=== PATIENT | female | born 1995 | race Asian ===

== ENCOUNTER 2021-02-01 16:43 | Emergency (ER) | payer OTHER ==
[~2021-02-01] VITALS: Ht 160 cm; Wt 55.0 kg
[2021-02-01] MEDS ORDERED: PNV1TABL76 PO (16:56)
[2021-02-01 17:38] LABS: BASOPHILS % 0.4 % (0.0-2.0); EOSINOPHILS % 2.5 % (0.0-5.0); HEMATOCRIT. 37.7 % (36.0-48.0); HEMOGLOBIN. 12.6 g/dL (12.0-16.0); LYMPHOCYTES % 17.2 % (20.0-50.0); MEAN CORPUSCULAR HEMOGLOBIN 30.6 pg (28.0-32.0); MEAN CORPUSCULAR VOLUME 91.2 fL (81.0-99.0); MONOCYTES % 8.3 % (2.0-8.0); NEUTROPHILS % 71.6 % (40.0-76.0); PLATELET 235 x1000/uL (130-400); RED BLOOD CELL COUNT 4.13 mill/uL (4.2-5.4); RED CELL DISTRIBUTION WIDTH 13.2 % (11.6-14.6)
[2021-02-01 17:48] LABS: CHLORIDE 106 mEq/L (98-107)
[2021-02-01 17:52] LABS: HCG SCREEN POSITIVE
[2021-02-01 18:31] LABS: B-HCG QUANTITATIVE 80103 mIU/mL (<3)
[2021-02-01 20:00] VITALS: BP 93/43
[2021-02-01 21:08] LABS: CLARITY URINE CLOUDY (CLEAR); COLOR URINE YELLOW (YELLOW); KETONES URINE TRACE (NEGATIVE); LEUKOCYTE ESTERASE URINE 2+ (NEGATIVE); NITRITE URINE POSITIVE (NEGATIVE); OCCULT BLOOD URINE 1+ (NEGATIVE); PROTEIN URINE NEGATIVE (NEGATIVE); SPECIFIC GRAVITY URINE 1.025 (1.005-1.030); UROBILINOGEN URINE 0.2 E.U./dL (0.2-1.0)
[2021-02-01] MEDS ORDERED: AMOX-424 MT (21:33)
[2021-02-01] MEDS ORDERED: AMOXICILLIN/POTASSIUM CLAVULANATE 875/125MG TAB PO ONE (21:45)
== END 2021-02-01 22:10 | disposition home or self-care (01) ==
LOC: ER 16:43
DX: O23.11 Infections of bladder in pregnancy, first trimester (principal); Z3A.08 8 weeks gestation of pregnancy
CPT/HCPCS: 36415; 76801; 80053; 81003; 81025; 84702; 84703; 85025; 86850; 86900; 87077; 87186; 93005; 99284

== ENCOUNTER 2021-05-05 15:16 | Emergency (ER) | payer OTHER ==
[~2021-05-05] VITALS: Ht 160 cm; Wt 60.0 kg
[~2021-05-05 15:16] MED LIST: AMOX-424 MT; PNV1TABL76 PO
[2021-05-05 15:36] VITALS: BP 98/56
[2021-05-05] MEDS ORDERED: SODIUM CHLORIDE 0.9% 1,000 ML IV ONE (16:45)
== END 2021-05-05 16:49 | disposition left against medical advice (07) ==
LOC: ER 15:16
DX: R55 Syncope and collapse (principal)
CPT/HCPCS: 93005; 99283; J7030

== ENCOUNTER 2024-08-22 21:07 | Emergency (ER) | payer MEDICAID, OTHER ==
[~2024-08-22] VITALS: Ht 157.5 cm; Wt 55.0 kg
[2024-08-22 21:10] VITALS: O2SAT 100
[2024-08-22 21:14] VITALS: BP 100/62; PULSE 74; RESP 18; TEMP 98.3; O2SAT 100
== END 2024-08-22 22:22 | disposition left against medical advice (07) ==
LOC: ER 21:07
DX: R07.81 Pleurodynia (principal); Z53.21 Procedure and treatment not carried out due to patient leaving prior to being seen by health care provider